=== PATIENT | female | born 1995 | race Caucasian/White ===

== ENCOUNTER 2017-09-18 23:45 | Emergency (ER) | payer OTHER ==
[~2017-09-18] VITALS: Ht 167.6 cm; Wt 78.7 kg
[2017-09-18 23:50] VITALS: BP 137/90
--- NOTE | 2017-09-18 23:59 | NUR ---
TO LOBBY, AMB, VS STABLE , A/W FOR BED, ANNELISE NOTED
--- NOTE | 2017-09-19 00:45 | NUR ---
FEELING MUCH BETTER, TO SEE PMD IN MORNING. PATIENT LEFT WITHOUT BEING SEEN BY DR. LUGO. NO FURTHER CARE PROVIDED FOR PATIENT.
== END 2017-09-19 00:45 | disposition left against medical advice (07) ==
LOC: MED 23:45
DX: R05 Cough (principal); Z53.21 Procedure and treatment not carried out due to patient leaving prior to being seen by health care provider